=== PATIENT | male | born 1990 | race Caucasian/White ===

== ENCOUNTER 2017-08-28 11:44 | Emergency (ER) | payer SELFPAY ==
[~2017-08-28] VITALS: Ht 182.9 cm; Wt 75.0 kg
[~2017-08-28 11:44] MED LIST: DICY1TAB26 PO; GUAI100S6 PO; LOMO PO; ZITH250T PO; ZOFR4TAB3 SL
[2017-08-28 11:57] VITALS: BP 129/62; PULSE 62; RESP 16; TEMP 98.1; O2SAT 99
[2017-08-28] MEDS ORDERED: NAPR500T2 PO (12:28)
[2017-08-28] MEDS ORDERED: CYCL5TAB PO (12:28)
[2017-08-28] MEDS ORDERED: KETOROLAC TROMETHAMINE 60 MG/2 ML (IM) VIAL IM ONE (12:30)
[2017-08-28] MEDS ORDERED: ORPHENADRINE INJ 60 MG/2 ML AMP IM ONE (12:30)
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
== END 2017-08-28 12:47 | disposition home or self-care (01) ==
LOC: PHEFT 11:44
DX: M54.6 Pain in thoracic spine (principal); F17.200 Nicotine dependence, unspecified, uncomplicated
CPT/HCPCS: 96372; 99284; J1885; J2360

== ENCOUNTER 2017-12-09 17:07 | Emergency (ER) | payer SELFPAY ==
[~2017-12-09] VITALS: Ht 185.4 cm; Wt 72.5 kg
[~2017-12-09 17:07] MED LIST changes: +CYCL5TAB PO; -DICY1TAB26 PO; -GUAI100S6 PO; -LOMO PO; +NAPR500T2 PO; -ZITH250T PO; -ZOFR4TAB3 SL
[2017-12-09 17:25] VITALS: BP 128/63; PULSE 85; RESP 16; TEMP 97.9; O2SAT 98
[2017-12-09] MEDS ORDERED: SODIUM CHLOR 0.9% 1000 ML INJ 1,000 ML IV SCH (17:42)
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
[2017-12-09] MEDS ORDERED: ONDANSETRON HCL 4 MG/2 ML VIAL IVP ONE (17:45)
[2017-12-09] MEDS ORDERED: SODIUM CHLORIDE 0.9% FLUSH 10 ML FLUSH IV FLUSH PRN (17:45)
[2017-12-09 18:17] LABS: AUTOMATED NEUTROPHIL # 10.8 TH/MM3 (1.8-7.7); BASOPHIL # 0.5 TH/MM3 (0-0.2); BASOPHIL % 3.9 % (0.0-2.0); EOSINOPHIL % 0.4 % (0.0-4.0); HEMATOCRIT 44.4 % (39.0-51.0); HEMOGLOBIN 15.5 GM/DL (13.0-17.0); LYMPH % 2.9 % (9.0-44.0); LYMPHOCYTE # 0.4 TH/MM3 (1.0-4.8); MEAN CELL VOLUME 88.1 FL (80.0-100.0); MEAN CORPUSCULAR HEMOGLOBIN 30.7 PG (27.0-34.0); MEAN CORPUSCULAR HGB CONC 34.9 % (32.0-36.0); MEAN PLATELET VOLUME 7.9 FL (7.0-11.0); MONO % 3.9 % (0.0-8.0); MONOCYTE # 0.5 TH/MM3 (0-0.9); NEUT % 88.9 % (16.0-70.0); PLATELET COUNT 231 TH/MM3 (150-450); RED BLOOD COUNT 5.05 MIL/MM3 (4.50-5.90); RED CELL DISTRIBUTION WIDTH 12.4 % (11.6-17.2); WHITE BLOOD COUNT 12.2 TH/MM3 (4.0-11.0)
[2017-12-09 18:19] LABS: CHLORIDE 106 MEQ/L (98-107); SODIUM (NA) 139 MEQ/L (136-145)
[2017-12-09 18:22] LABS: CALCIUM 8.3 MG/DL (8.5-10.1)
[2017-12-09 18:23] LABS: ALBUMIN 3.7 GM/DL (3.4-5.0); BICARBONATE 26.7 MEQ/L (21.0-32.0); BLOOD UREA NITROGEN 16 MG/DL (7-18); GLUCOSE,RANDOM 91 MG/DL (74-106)
[2017-12-09 18:25] LABS: ALT (GPT) 28 U/L (12-78); AST (GOT) 17 U/L (15-37)
[2017-12-09 18:26] LABS: CREATININE 0.92 MG/DL (0.60-1.30); GLOMERULAR FILTRATION RATE 100 ML/MIN (>89)
[2017-12-09 18:27] LABS: TOTAL BILIRUBIN ADULT 0.9 MG/DL (0.2-1.0)
[2017-12-09 18:28] VITALS: BP 124/59; PULSE 72; RESP 16; O2SAT 99
[2017-12-09 18:28] LABS: ALKALINE PHOSPHATASE 72 U/L (45-117)
[2017-12-09] MEDS ORDERED: METR-1 PO (18:44)
[2017-12-09] MEDS ORDERED: ZOFR4TAB3 SL (18:44)
[2017-12-09] MEDS ORDERED: TRAM50 PO (18:44)
[2017-12-09] MEDS ORDERED: CIPR-9 PO (18:44)
[2017-12-09 18:59] VITALS: BP 126/79
== END 2017-12-09 19:06 | disposition home or self-care (01) ==
LOC: PHED 17:07
DX: A04.9 Bacterial intestinal infection, unspecified (principal); F17.210 Nicotine dependence, cigarettes, uncomplicated
CPT/HCPCS: 80053; 83690; 85025; 96374; 96375; 99284; J2405; J7030